=== PATIENT | female | born 1985 | race Caucasian/White ===

== ENCOUNTER 2017-11-02 15:13 | Emergency (ER) | payer OTHER ==
[~2017-11-02] VITALS: Ht 170.2 cm; Wt 81.6 kg
[2017-11-02 15:25] VITALS: BP 131/70
[2017-11-02] MEDS ORDERED: NAPROXEN 500 MG TABLET PO STA (15:31)
[2017-11-02] MEDS ORDERED: HYDROcodone/APAP 5/325MG 1 TAB TABLET PO ONE (15:45)
--- NOTE | 2017-11-02 15:56 | PHYS DOC ---
Past Medical History Past Medical History: No Pertinent History Past Surgical History: No Surgical History Alcohol Use: None Drug Use: None Adult General Chief Complaint Chief Complaint: KNEE INJURY HPI HPI Patient is a 32 year old female who presents with 10/10 sharp and constant bilateral knee pain that began today after she fell at the [employer] performing. Patient states she landed on both her knees. Denies any loss of consciousness. She states she has not taken anything for her pain. She states her pain is worse on flexion of the knees. Review of Systems Review of Systems Constitutional: Denies fever or chills [] Musculoskeletal: Reports bilateral knee pain Integument: Denies rash or skin lesions [] Neurologic: Denies headache, focal weakness or sensory changes [] All other systems were reviewed and found to be within normal limits, except as documented in this note. Current Medications Current Medications Current Medications Medications (Trade) Dose Ordered Sig/Dejuan Start Time Stop Time Status Last Admin Dose Admin Acetaminophen/ Hydrocodone Bitart (Lortab 5/325) 2 tab 1X ONCE 11/02/17 15:45 11/02/17 15:48 DC 11/02/17 16:06 2 TAB Naproxen (Naprosyn) 500 mg 1X STAT 11/02/17 15:31 11/02/17 15:48 DC 11/02/17 16:06 500 MG Allergies Allergies Allergies Coded Allergies Type Severity Reaction Last Updated Verified amoxicillin Allergy Unknown Rash 11/02/17 Yes cephradine Allergy Unknown Rash 11/02/17 Yes clavulanic acid Allergy Unknown Rash 11/02/17 Yes Physical Exam Physical Exam Constitutional: Well developed, well nourished, no acute distress, non-toxic appearance. [] Skin: Warm, dry, no erythema, no rash. [] Back: No tenderness, no CVA tenderness. [] Extremities: Bilateral knees with no obvious deformity, small amount of soft tissue swelling noted to bilateral knees worse on the left. Bruising noted to bilateral knees. Slight bruising noted on the proximal lateral meza. Full passive range of motion to bilateral knees. Negative Rhoda sign and negative Belem's sign negative anterior-posterior drawer sign to bilateral knees. +2 left pedal pulse, cap refill less than 2 seconds bilateral lower extremities. Neurologic: Alert and oriented X 3, normal motor function, normal sensory function, no focal deficits noted. [] Psychologic: Affect normal, judgement normal, mood normal. [] Current Patient Data Vital Signs Vital Signs Date Time Temp Pulse Resp B/P (MAP) Pulse Ox O2 Delivery O2 Flow Rate FiO2 11/02/17 15:25 98.0 86 20 131/70 (90) 99 Room Air 98.0 EKG EKG [] Radiology/Procedures Radiology/Procedures []PROCEDURE: KNEE BILAT 4V History: Fall today. Bilateral knee pain and swelling. Comparison: None. Findings: AP, lateral, oblique, and merchant views of the right knee. No acute fracture or dislocation is identified. No joint effusion is seen. AP, lateral, oblique, and merchant views of the left knee. No acute fracture or dislocation is identified. No joint effusion is identified. Impression: No acute osseous abnormality identified. Electronically signed by: Prateek Cabrera MD (11/02/2017 3:54 PM) [facility] [place] DICTATED and SIGNED BY: PRATEEK CABRERA MD DATE: 11/02/17 1555 Course & Med Decision Making Course & Med Decision Making Pertinent Labs and Imaging studies reviewed. (See chart for details) This is a 32-year-old female patient presenting to the ED with bilateral knee pain after falling at the [facility] [employer] performing. Bilateral knee x- rays are negative for any acute findings, Matt wrap applied to bilateral knees by Ed RN neurovascular exam is intact. Ice elevation encouraged. Given prescription for diclofenac. Dragon Disclaimer Dragon Disclaimer This electronic medical record was generated, in whole or in part, using a voice recognition dictation system. Departure Departure Impression: Primary Impression: Fall from standing Additional Impressions: Contusion of right knee Contusion of left knee Disposition: 01 HOME, SELF-CARE Condition: STABLE Referrals: NO PCP (PCP) SALVATORE NORTON MD follow up in 1 week as needed Patient Instructions: Contusion, [id number], Fall Prevention and Home Safety Additional Instructions: You were evaluated in the emergency room for bilateral knee contusions after falling. Your x-rays are negative for any acute findings. Try to ice and elevate the extremities. Take the prescribed pain medicine as needed for pain. You can drive or operate machinery on the prescribed pain medications. 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
[2017-11-02] MEDS ORDERED: DICL50TA4 PO (16:14)
== END 2017-11-02 16:35 | disposition home or self-care (01) ==
LOC: ER 15:13
DX: S80.01XA Contusion of right knee, initial encounter (principal); S80.02XA Contusion of left knee, initial encounter; Z88.1 Allergy status to other antibiotic agents; Z88.8 Allergy status to other drugs, medicaments and biological substances; W18.39XA Other fall on same level, initial encounter; Y93.89 Activity, other specified; Y92.89 Other specified places as the place of occurrence of the external cause; Y99.8 Other external cause status
CPT/HCPCS: 73564; 99284